=== PATIENT | female | born 1970 | race Caucasian/White ===

== ENCOUNTER → 2021-02-05 | Outpatient (CLI) | payer OTHER ==
--- NOTE | 2021-02-05 12:44 | BD ---
EXAMINATION TYPE: Axial Bone Density DATE OF EXAM: 02/05/2021 COMPARISON: NONE CLINICAL HISTORY: Height: 60 Weight: 112.0 FRAX RISK QUESTIONS: Alcohol (3 or more units per day): no Family History (Parent hip fracture): no Glucocorticoids (More than 3mos): no (Ex: prednisone, prednisolone, methylprednisolone, dexamethasone, and hydrocortisone). History of Fracture in Adulthood: no Secondary Osteoporosis: 1. Type 1 Diabetes: no 2. Hyperthyroidism: no 3. Menopause before 45: no 4. Malnutrition: no 5. Chronic liver disease: no Rheumatoid Arthritis: no Current Tobacco Use: no RISK FACTORS HISTORY OF: Surgery to Spine/Hip(right/left)/Wrist (right/left): no Family History of Osteoporosis: no Active: yes Diet low in dairy products/other sources of calcium: yes Postmenopausal woman: age 50 Lost more than 2 inches in height since high school: no MEDICATIONS: omeprazole, valium, d3, zinc Additional History: diagnosed with breast cancer february 2020 EXAM MEASUREMENTS: Bone mineral densitometry was performed using the RawFlow System. Bone mineral density as measured about the Lumbar spine is: ----- L1-L4(G/cm2): 1.148 T Score Values are as follows: ----- L2: -0.6 ----- L3: 0.0 ----- L4: -0.3 ----- L1-L4: -0.3 Bone mineral density : baseline Bone mineral density about the R hip (g/cm2): 0.769 Bone mineral density about the L hip (g/cm2): 0.771 T Score values are as follows: -----R Neck: -1.9 -----L Neck: -1.9 -----R Total: -1.4 -----L Total: -1.5 Bone mineral density : baseline IMPRESSION: Osteopenia (T Score between -2.5 and -1). There is slightly increased risk of fracture and the patient may be considered for treatment. Re-Screen 2-5 years. NOTE: T-SCORE=SD OF THE YOUNG ADULT MEAN.
== END | disposition home or self-care (01) ==
LOC: RADBDWWP 08:47
PROVIDERS: ATTEND Internal Medicine Hematology & Oncology
DX: C50.411 Malignant neoplasm of upper-outer quadrant of right female breast (principal); M85.80 Other specified disorders of bone density and structure, unspecified site; Z79.890 Hormone replacement therapy
CPT/HCPCS: 77080

== ENCOUNTER → 2022-02-19 | Outpatient (CLI) | payer OTHER ==
--- NOTE | 2022-02-19 23:43 | CTL ---
EXAMINATION TYPE: CT Low Dose Lung DATE OF EXAM ORDERED: 02/19/2022 HISTORY: Personal tobacco use. 35 pack-year smoking history. Lung cancer screening CT DLP: 60.[address] CTDI: 1.6 mGy Automated exposure control for dose reduction was used. SCREENING VISIT: Initial, baseline COMPARISON: Not available TECHNIQUE: Low dose computed tomography scan was performed through the chest at 1 mm thick sections a nd reconstructed images in multiple planes at 1 mm and [address] DIAGNOSTIC QUALITY: Satisfactory FINDINGS: LUNG NODULES: [address] image 193/321. This nodule is calcified. Cardiac size appears within normal limits. No pericardial effusion. Thoracic aorta and main pulmonary arteries are of normal caliber. Small calcified mediastinal lymph nodes. Central airways are normal course and caliber. Nonspecific ill-defined area of groundglass opacity wi thin the subpleural right lung apex. No pleural effusion or pneumothorax. Visualized osseous structures appear intact. Mild multilevel degenerative changes of the thoracic spi ne. Limited evaluation of the upper abdomen appears unremarkable. IMPRESSION: 1. 7 mm calcified pulmonary nodule in the left lower lobe. 2. Ill-defined area of groundglass opacity within the right lung apex. Findings likely represent infe ctious/inflammatory etiology and recommend appropriate clinical correlation. CT LUNG RAD AND CT CHEST RECOMMENDATION: Category 1s: Negative. Recommend continued annual screening with low-dose CT chest. S Modifier (other clinically significant findings): Right apical groundglass opacity which may be inf ectious or inflammatory. Recommend appropriate clinical correlation.
== END | disposition home or self-care (01) ==
LOC: RADCTMAIN 18:39
PROVIDERS: ATTEND Internal Medicine Hematology & Oncology
DX: Z12.2 Encounter for screening for malignant neoplasm of respiratory organs (principal); R91.1 Solitary pulmonary nodule; Z87.891 Personal history of nicotine dependence; R91.8 Other nonspecific abnormal finding of lung field
CPT/HCPCS: 71271

== ENCOUNTER → 2022-03-07 | Outpatient (CLI) | payer OTHER ==
--- NOTE | 2022-03-07 16:18 | MR ---
EXAMINATION TYPE: MR brain wo/w con DATE OF EXAM: 03/07/2022 COMPARISON: HISTORY: Dizziness, headaches, balance issues, nausea, memory loss, hx of breast ca CONTRAST: Standard multiplanar, multisequence MRI departmental protocol images were obtained without contrast a nd with 5 mL intravenous Gadavist gadolinium contrast. Diffusion images show no evidence of an acute infarct. The ventricles have normal size. There is no m ass effect or midline shift. No sign of intracranial hemorrhage. There are a few scattered small foci of increased signal up to 3 mm in the periventricular white matter. Total numbers less than 10. Brai nstem is intact. Corpus callosum is intact. Sella turcica appears normal. Contrast images show no pathologic enhancement. There is normal enhancement of the venous sinuses. Th ere is some increased signal in the right mastoid sinus consistent with sinusitis. IMPRESSION: Scattered small white matter high signal foci of doubtful significance. Otherwise negative exam. No e vidence of cortical infarct. No evidence of metastatic disease. There is evidence for some mild right -sided mastoiditis.
== END | disposition home or self-care (01) ==
LOC: RADMRIMAIN 13:17
PROVIDERS: ATTEND Internal Medicine Hematology & Oncology
DX: H70.91 Unspecified mastoiditis, right ear (principal); Z85.3 Personal history of malignant neoplasm of breast
CPT/HCPCS: 70553; A9585

== ENCOUNTER → 2022-06-03 | Outpatient (CLI) | payer OTHER ==
--- NOTE | 2022-06-03 12:28 | CT ---
EXAMINATION TYPE: CT chest wo con CT DLP: 137.6 mGycm, Automated exposure control for dose reduction was used. DATE OF EXAM: 06/03/2022 8:11 AM COMPARISON: CT low-dose lung cancer screening 02/19/2022. CLINICAL INDICATION:Female, 52 years old with history of B99.9 Infection; TECHNIQUE: Multiple axial images were obtained through the chest without IV contrast. Lack of IV or o ral contrast limits evaluation of solid and hollow organ viscera. Frontal sagittal reformats reviewed . FINDINGS: LUNGS/ PLEURA: No pneumothorax or pleural effusion. Stable ill-defined reticular groundglass opacity in the subpleural right lung apex. Remaining as are clear. Stable 6 mm calcified left lower lobe pulm onary nodule. Otherwise no concerning pulmonary nodules. AIRWAY: Patent and unremarkable.. HEART: Size within normal limits. No pericardial effusion. MEDIASTINUM: Stable small calcified mediastinal hilar lymph nodes. VASCULATURE: No aortic aneurysm. MUSCULOSKELETAL: No acute osseous abnormalities SOFT TISSUES/LYMPH NODES: No axillary adenopathy. Bilateral breast prosthesis. LOWER NECK: No significant findings. UPPER ABDOMEN: Small hiatal hernia. IMPRESSION: 1. Stable ill-defined area of reticular groundglass opacity within the right lung apex. This may repr esent infectious/inflammatory etiology versus scarring. Consider follow-up examination in 12 months. 2. Stable 6 mm calcified left lower lobe pulmonary nodule which may represent calcified granuloma or hamartoma.
== END | disposition home or self-care (01) ==
LOC: RADCTMAIN 07:45
PROVIDERS: ATTEND Internal Medicine Hematology & Oncology
DX: R91.8 Other nonspecific abnormal finding of lung field (principal); B99.9 Unspecified infectious disease
CPT/HCPCS: 71250

== ENCOUNTER → 2023-06-08 | Outpatient (CLI) | payer OTHER ==
--- NOTE | 2023-06-08 12:09 | BD ---
EXAMINATION TYPE: Axial Bone Density DATE OF EXAM: 06/08/2023 CLINICAL HISTORY: 53 years old Female. ICD-10 CODE: M85.80 OTH DISRD OF BONE DENSITY AND STRUCTURE, UN Height: 60 Weight: 106.3 FRAX RISK QUESTIONS: Alcohol (3 or more units per day): no Family History (Parent hip fracture): no Glucocorticoids (More than 3mos): no History of Fracture in Adulthood: no Secondary Osteoporosis: 1. Type 1 Diabetes: no 2. Hyperthyroidism: no 3. Menopause before 45: no 4. Malnutrition: no 5. Chronic liver disease: no Rheumatoid Arthritis: no Current Tobacco Use: no RISK FACTORS HISTORY OF: Hip Fracture (Right/Left): no Spine Fracture: no History of Wrist Fracture: no Surgery to Spine/Hip(right/left)/Wrist (right/left): no Family History of Osteoporosis: no Active: no Diet low in dairy products/other sources of calcium: yes Postmenopausal woman: yes Take estrogen and/or progesterone medications: hormone sarah How long: since March 2020 Lost more than 2 inches in height since high school: yes Frequent falls: yes Poor Health: no Hyperparathyroidism: no Adrenal Insufficiency: no MEDICATIONS: Prednisone or other steroids: no Thyroid Medications: no Osteoporosis Medications:no Additional Medications: Hormone Sarah, Depression meds, Vit D, Additional History: Breast Ca. 2020 with Chemo and Radiation EXAM MEASUREMENTS: Bone mineral densitometry was performed using the [employer] System. Bone mineral density as measured about the Lumbar spine is: ----- L1-L4(G/cm2): 1.145 T Score Values are as follows: ----- L1: -1.5 ----- L2: -1.3 ----- L3: -0.5 ----- L4: -0.4 ----- L1-L4: -0.8 Z Score Values are as follows: ----- L1: -0.3 ----- L2: -0.1 ----- L3: 0.7 ----- L4: 0.8 ----- L1-L4: 0.4 Bone mineral density has: decreased -5.9 % since study of: 02/05/2021 Bone mineral density about the R hip (g/cm2): 0.780 Bone mineral density about the L hip (g/cm2): 0.728 T Score values are as follows: -----R Neck: -2.4 -----L Neck: -2.6 -----R Total: -1.8 -----L Total: -2.2 Z Score values are as follows: -----R Neck: -1.1 -----L Neck: -1.3 -----R Total: -0.8 -----L Total: -1.2 Bone mineral density has: decreased -8.7 % since study of: 02/05/2021 FRAX%s: The graph provided illustrates a 7.9% chance for a major osteoporotic fx and a 1.8% chance fo r the hips probability for fx in 10 years time. IMPRESSION: Osteoporosis (T Score less than -2.5). There is increased fracture risk and therapy is usually indicated based on age. Re-Screen 1-2 years. NOTE: T-SCORE=SD OF THE YOUNG ADULT MEAN.
== END | disposition home or self-care (01) ==
LOC: RADBDWWP 11:07
PROVIDERS: ATTEND Internal Medicine Hematology & Oncology
DX: M81.0 Age-related osteoporosis without current pathological fracture (principal); M85.89 Other specified disorders of bone density and structure, multiple sites; Z85.3 Personal history of malignant neoplasm of breast
CPT/HCPCS: 77080

== ENCOUNTER → 2024-06-01 | Outpatient (CLI) | payer OTHER ==
--- NOTE | 2024-06-29 16:43 | MR ---
EXAMINATION TYPE: MR lumbar spine wo/w con DATE OF EXAM: 06/01/2024 COMPARISON: None available during downtime HISTORY: 54-year-old female C50.411 history of breast cancer, G89.28 chronic postoperative pain. Low back and hip pain. Technique: Multiplanar, multisequence images of the lumbar spine were obtained before and after admin istration of 5 mL intravenous Gadavist gadolinium contrast. FINDINGS: Vertebral body heights are preserved and alignment is maintained. Mild heterogeneous marrow signal without suspicious bone marrow replacement. There is mild multilevel degenerative disc disease with desiccation and bulging discs. Some minimal e dematous Modic type I endplate change is present anteriorly at L2-L3. A few scattered small endplate Schmorl's nodes are present. Conus medullaris is normal. Right-sided sacral Tarlov cyst measuring 2.2 cm and measuring 1.1 cm on the left. Bulging discs contribute to ventral impressions onto the thecal sac particularly at L3-L4 where there is mild narrowing of the spinal canal. No large focal disc herniation or significant spinal canal st enosis is seen. There is moderate facet arthropathy mid to lower lumbar spine. Small associated 6 mm synovial cyst pr ojecting posteriorly from the left-sided L4-L5 facet joint. There is a 7 mm intradural, extra medullary nodule located along the dorsal midline cauda equina nerv e roots opposite the L2-L3 level. This shows only mild homogeneous postcontrast enhancement. No significant neuroforaminal stenoses on either side. No prevertebral or paravertebral soft tissue abnormality is seen. There is underlying sigmoid diverti culosis noted. IMPRESSION: 1. Mild multilevel degenerative disc disease. Posterior disc bulge at L3-L4 mildly narrows the spinal canal. No large focal disc herniation or significant spinal canal stenosis. 2. Moderate facet arthropathy mid to lower lumbar spine. There is an associated 6 mm synovial cyst pr ojecting posteriorly from the left L4-L5 facet joint. 3. No vertebral compression collapse or malalignment. Scattered small endplate Schmorl's nodes are no leda. 4. Small 7 mm intradural, extramedullary nodule along the cauda equina nerve roots opposite the L2-L3 level. Differential considerations include a small meningioma and small nerve sheath tumor. Benign i s favored. 3-6 month follow-up to reassess. 5. Incidental sacral Tarlov cysts measuring up to 2.2 cm.
== END | disposition home or self-care (01) ==
LOC: RADMRIMAIN 10:10
PROVIDERS: ATTEND Internal Medicine Hematology & Oncology
DX: C50.411 Malignant neoplasm of upper-outer quadrant of right female breast (principal); M51.36 Other intervertebral disc degeneration, lumbar region; M47.816 Spondylosis without myelopathy or radiculopathy, lumbar region; G96.191 Perineural cyst; M51.46 Schmorl's nodes, lumbar region
CPT/HCPCS: 72158; A9585